=== PATIENT | female | born 1960 | race African-American/Black ===

== ENCOUNTER 2016-07-17 20:48 | Emergency (ER) | payer OTHER ==
[~2016-07-17] VITALS: Ht 165.1 cm; Wt 72.7 kg
[~2016-07-17 20:48] MED LIST: [UNRECOGNIZED DRUG - REMARK]
[2016-07-17] MEDS ORDERED: IBUPROFEN 800 MG TABLET PO ONE (22:00)
[2016-07-17] MEDS ORDERED: IBUPROFEN 400 MG TABLET PO ONE (22:15)
[2016-07-17 22:25] VITALS: BP 133/86
== END 2016-07-17 23:03 | disposition home or self-care (01) ==
LOC: EMS 20:57
DX: S39.012A Strain of muscle, fascia and tendon of lower back, initial encounter (principal); K21.9 Gastro-esophageal reflux disease without esophagitis; J44.9 Chronic obstructive pulmonary disease, unspecified; J45.909 Unspecified asthma, uncomplicated; F15.90 Other stimulant use, unspecified, uncomplicated; F17.210 Nicotine dependence, cigarettes, uncomplicated; Z88.5 Allergy status to narcotic agent; Z88.8 Allergy status to other drugs, medicaments and biological substances; V49.88XA Car occupant (driver) (passenger) injured in other specified transport accidents, initial encounter; Y93.89 Activity, other specified; Y92.89 Other specified places as the place of occurrence of the external cause; Y99.8 Other external cause status
CPT/HCPCS: 72100; 99284